=== PATIENT | male | born 1950 | race Caucasian/White ===

== ENCOUNTER 2025-05-13 15:17 | Emergency (ER) | payer MEDICARE, MEDICAID, SELFPAY ==
[2025-05-13 15:27] VITALS: BP 179/90; PULSE 70; RESP 18; TEMP 36.7; O2SAT 95; BMI 24.2
--- OUTSIDE RECORDS SUMMARY | 2025-05-13 15:29 | XMS_ITS | Encounter Summary ---
Author Organization [employer] [facility] Address [address] [place] [address] Care Team Providers Care Timber Deadener Name Role Phone Unavailable Primary Care Provider Unavailabl e Encounter Details Date Type Department Care Team (Late st Contact Info) Description 07/22/2001 Outpatient Historical [facility] Wilda, Elvis Tamayo MD [address] [phone] Inguinal hernia without mention of obstruction or gangrene, unilateral or unspecified, (not specified as recurrent) (Primary Dx) Social History Tobacco Use Types Packs/Day Years Used Date Smoking Tobacco: Never Assessed Sex and Gender Information Value Date Recorded Sex Assigned at Not on file 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
--- OUTSIDE RECORDS SUMMARY | 2025-05-13 15:29 | XMS_ITS | Clinical Summary ---
Author Organization [facility] Address [address] [facility] [address] 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
--- OUTSIDE RECORDS SUMMARY | 2025-05-13 15:29 | XMS_ITS | Encounter Summary ---
Author Organization [employer] [facility] Address [address] [place] [address] Care Team Providers Care Mud Mixer Name Role Phone Unavailable Primary Care Provider Unavailabl e Encounter Details Date Type Department Care Team (Late st Contact Info) Description 09/02/2001 Outpatient Historical [facility] Wilda, Elvis Tamayo MD [address] [phone] SURGERY FOLLOWUP, UNSPEC (Primary Dx) Social History Tobacco Use Types Packs/Day Years Used Date Smoking Tobacco: Never Assessed Sex and Gender Information Value Date Recorded Sex Assigned at Not on file 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
--- OUTSIDE RECORDS SUMMARY | 2025-05-13 15:29 | XMS_ITS | Encounter Summary ---
[facility] Organization [facility] Address [address] [place] [address] Care Team Providers Care Environmental Conservation Officer Name Role Phone Unavailable Primary Care Provider Unavailabl e Encounter Details Date Type Department Care Team (Late st Contact Info) Description 08/12/2001 Outpatient Historical [facility] Wilda, Elvis Tamayo MD [address] [phone] Special screening for malignant neoplasms, colon (Primary Dx) Social History Tobacco Use Types Packs/Day Years Used Date Smoking Tobacco: Never Assessed Sex and Gender Information Value Date Recorded Sex Assigned at Not on file 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
[2025-05-13 16:08] VITALS: BP 168/81; PULSE 64; O2SAT 95
--- NOTE | 2025-05-13 16:21 | CTR_ITS ---
PROCEDURE INFORMATION: Exam: CTA Chest With Contrast Exam date and time: 05/13/2025 5:03 PM Age: 74 years old Clinical indication: Shortness of breath; Additional info: SOB, near syncope TECHNIQUE: Imaging protocol: Computed tomographic angiography of the chest with contrast. Exam focused on the arteries. 3D rendering (Not supervised by radiologist): MIP and/or 3D reconstructed images were created by the technologist. Radiation optimization: All CT scans at this facility use at least one of these dose optimization techniques: automated exposure control; mA and/or kV adjustment per patient size (includes targeted exams where dose is matched to clinical indication); or iterative reconstruction. Contrast material: [id number]; Contrast volume: 80 ml; Contrast route: INTRAVENOUS (IV); COMPARISON: CR (CHEST, ) 05/13/2025 4:32 PM RADIATION DOSE METRICS: Total DLP (mGy-cm): 303.09 FINDINGS: Pulmonary arteries: There is no evidence of filling defects within the pulmonary arterial circulation to suggest pulmonary embolism. Aorta: There is no thoracic aortic aneurysm or dissection. Lungs: There are moderate changes of centrilobular emphysema, mainly in the apical regions. There is some paraseptal emphysema medially on both sides left greater than right with a few subpleural blebs along the left heart border. No acute pulmonary infiltrate is identified. There is calcified granuloma in the right lower lobe. Incidentally noted is an azygos lobe. There is mild diffuse bronchial wall thickening involving the central bronchi which may be related to bronchitis, possibly chronic. Please correlate with the clinical findings. Pleural spaces: There are no pleural effusions present. There is no evidence of pneumothorax. Heart: Unremarkable. No cardiomegaly. No pericardial effusion. Coronary arteries: There is severe atherosclerotic calcification of the coronary arteries. Lymph nodes: Unremarkable. No enlarged lymph nodes. Bones/joints: Unremarkable. No acute fracture. Soft tissues: Unremarkable. CT/CT angio chest PE protcl [id number] IMPRESSION: 1. Bronchitis and emphysema. 2. No evidence of pulmonary embolism. COMMENTS: The presence of pulmonary emphysema on CT is an independent risk factor for lung cancer. In the absence of a history or active diagnosis of lung cancer, it is recommended that this patient with emphysema be evaluated for enrollment in a low dose CT lung cancer screening program.
--- NOTE | 2025-05-13 16:21 | XRR_ITS ---
PROCEDURE INFORMATION: Exam: XR Chest Exam date and time: 05/13/2025 4:32 PM Age: 74 years old Clinical indication: Shortness of breath; Additional info: SOB TECHNIQUE: Imaging protocol: Radiologic exam of the chest. Views: 1 view. COMPARISON: No relevant prior studies available. FINDINGS: Lungs: Lungs are moderately hyperinflated. No consolidation. No focal infiltrate. Pleural spaces: Unremarkable. No pleural effusion. No pneumothorax. Heart/Mediastinum: Unremarkable. No cardiomegaly. Bones/joints: Unremarkable. XR/XR chest 1V portable [id number] IMPRESSION: Pulmonary hyperinflation. No acute infiltrate
--- NOTE | 2025-05-13 16:22 | ECG_ITS ---
[facility] Date: 2025-[facility]13 Pat Name: Nabeel Barrow Department: Room: Gender: Male Direct Marketing Intern: : 1950 Requested By: Orlin Esquivel Order Number: [id number] Duarte MD: Haris Sullivan M.D. Measurements Intervals [place] Rate: 57 P: 74 MI: 182 QRS: -86 QRSD: 102 T: 61 QT: 445 QTc: 435 Interpretive Statements SINUS BRADYCARDIA LOW QRS VOLTAGE IN EXTREMITY LEADS [QRS DEFLECTION < 0.5 mV IN LIMB LEADS] PATTERN CONSISTENT WITH PULMONARY DISEASE LEFT ANTERIOR FASCICULAR BLOCK [QRS AXIS <= -45, QR IN I, RS IN II] Compared to ECG 12/17/2014 17:01:40 Left anterior fascicular block now present Sinus rhythm no longer present Left-axis deviation no longer present Electronically Signed On 05-14-2025 00:17:04 CDT by Haris Sullivan M.D. [email or web address]
[2025-05-13 16:30] LABS: Hematocrit 42.8 % (37-53); Hemoglobin 14.20 g/dL (11.27-16.99); Mean Corpuscular HGB Conc 33.2 g/dL (30-55); Mean Corpuscular Hemoglobin 33.9 pg (27-33); Mean Corpuscular Volume 102.1 fl (82-101); Nucleated Red Blood Cells % 0 %; Platelet Count 175 10^3/cmm (157-399); Red Blood Count 4.19 10^6/uL (3.85-5.65); White Blood Count 8.73 10^3/uL (3.29-11.43)
[2025-05-13 16:41] LABS: Alanine Aminotransferase 8 U/L (0-41); Albumin Level 4.2 g/dL (3.5-5.2); Alkaline Phosphatase 73 U/L (40-130); Anion Gap 17.0 (5-19); Aspartate Amino Transferase 11 U/L (0-40); Blood Urea Nitrogen 5 mg/dL (8-23); Calcium 9.0 mg/dL (8.5-10.5); Carbon Dioxide 23 mmol/L (22-29); Chloride 103 mmol/L (98-107); Creatinine Clr Calc Pharmacy 76.1841; Globulin 2.4 g/dL (1.3-4.6); Glucose 88 mg/dL (65-115); Magnesium 2.2 mg/dL (1.7-2.3); Osmolality Calculated 285 mOsm/kg (285-295); Potassium 4.0 mmol/L (3.5-5.1); Sodium 139 mmol/L (136-145); Total Protein 6.6 g/dL (6.6-8.7)
[2025-05-13 17:00] LABS: Troponin(5th) Baseline 8 ng/L (0-15)
[2025-05-13] MEDS: iohexol 350 mg/mL 500 mL Btl (per mL) IV (17:14)
[2025-05-13 18:09] VITALS: BP 153/75; PULSE 54; O2SAT 97
--- NOTE | 2025-05-13 18:20 | ED_ITS ---
HPI - Dizziness 2 General: Chief Complaint: Dizziness Stated Complaint: dizziness Time Seen by Provider: 05/13/25 15:25 History of Present Illness: HPI Narrative: 74-year-old male presents to the ED with complaints of lightheadedness, shortness of breath, and tight muscles across his shoulders that began yesterday. The patient reports calling an ambulance yesterday for identical symptoms and again today, which prompted this visit. He denies vertigo or spinning sensation but describes general lightheadedness that comes and goes, occurring even when sitting down. The patient reports that smoking worsens his lightheadedness. He occasionally feels like he might pass out, though not consistently. The patient also reports occasional coughing, which he states is normal for him given his long smoking history. He additionally describes tingling sensations in his hands and feet, with the feet being more frequently affected. During his recent ambulance calls, he experienced tingling up and down his upper body and rushes of warmth on his left leg without apparent cause. The patient denies chest pain. He reports having equilibrium problems for the past 6-8 months, which he considers a separate, chronic issue. Related Data Previous Rx's ?Medication ?Instructions ?Recorded albuterol sulfate 90 mcg/actuation 2 inh inhalation Q6 H PRN shortness 05/13/25 aerosol inhaler (Ventolin HFA) of breath or wheezing # 6.7 grams azithromycin 250 mg tablet See Rx Instructions PO .COM PLEX #6 05/13/25 tabs prednisone 20 mg tablet 20 mg PO BID 5 days #10 tabs 05/13/25 Allergies Allergy/AdvReac Type Severity Reaction Status Date / Time No Known Allergies Allergy Unverified 11/27/21 08:20 [facility] ED 2 [facility]: Social History Smoking and tobacco/nicotine status: current every day tobacco/nicotine user Alcohol intake: never Substance/Drug Use: never Course 2 Vital Signs: Vital signs: Vital Signs Temperature 98.1 F 05/13/25 15:27 Pulse Rate 54 L 05/13/25 18:09 Respiratory Rate 18 05/13/25 15:27 Blood Pressure 153/75 05/13/25 18:09 Pulse Oximetry 97 05/13/25 18:09 Oxygen Delivery Me thod Room Air 05/13/25 15:27 MDM - Dizziness Medical Decision Making ROS: Constitutional: Denies fever, chills, or weight changes. HEENT: No headache or visual changes reported. Cardiovascular: Denies chest pain or palpitations. Respiratory: Reports shortness of breath and occasional cough, which is baseline for him. Neurological: Reports lightheadedness, tingling in extremities, and chronic balance issues. Denies vertigo, weakness in extremities. Musculoskeletal: Reports tight muscles across shoulders. All other systems negative or not addressed in the encounter. MEDICATIONS AND ALLERGIES: - Meds: Patient denies taking prescription medications. Reports taking supplements including cinnamon and an unspecified supplement for blood pressure/diabetes management. - Allergies: No known drug allergies reported. PAST HISTORICAL DATA: - PMH: Likely undiagnosed/untreated hypertension based on reported elevated blood pressures. Patient reports rarely seeking medical care. - PSH: Colonoscopy 6 years ago, no other surgical history reported. - Social: 40-year smoking history, approximately 1 pack per day. Very rare alcohol use, denies daily drinking. Denies drug use. VITAL SIGNS: BP: 168/81 (current), 196/104 (reported from yesterday) HR: 57 (from EKG) PHYSICAL EXAM: General: Alert, non-toxic appearing, in no apparent distress HEENT: Head normocephalic and atraumatic. Mucous membranes moist. Neck: Supple Respiratory: Breath sounds auscultated, no specific abnormalities documented Cardiac: Regular rate and rhythm, bradycardic at 57 bpm Abdomen: Soft, non-distended, no rebound or guarding Neuro: Cranial nerves grossly intact. [id number] testing performed with some difficulty with spatial relationships. No focal motor or sensory deficits noted. INITIAL IMPRESSION AND PLAN: Given the history and presentation, the primary working diagnosis is lightheadedness and shortness of breath of unclear etiology. Additional considerations include acute coronary syndrome, pulmonary embolism, COPD exacerbation, and hypertensive urgency. Based on this initial impression I will order blood work including CBC, chemistry panel, and troponin, chest X-ray, CT scan of the chest, and EKG to evaluate for cardiac and pulmonary etiologies of the patient's symptoms. TEST INTERPRETATIONS: - CT Chest: Shows bronchitis and emphysema. No evidence of pulmonary embolism. - Chest X-ray: Pulmonary hyperinflation noted. No acute infiltrate. - CBC: Unremarkable. WBC 8.7. - Chemistry Panel: Normal. BUN 5, Creatinine 0.7. - Troponin: 8 (normal). - EKG: Sinus bradycardia with rate of 57 beats per minute. No ischemic ST elevation or depressions. PROCEDURES: None performed CONSIDERED BUT NOT PERFORMED: Admission for observation CONSIDERED but NOT DONE due to no perceived benefit as patient has normal troponin, no evidence of PE on CT scan, and symptoms consistent with COPD exacerbation that can be managed as an outpatient. FINAL IMPRESSION: Based on all the above, my clinical impression is most compatible with COPD exacerbation with bronchitis and underlying emphysema. The clinical picture is not currently suggestive of acute coronary syndrome or pulmonary embolism. Although other conditions were also considered, they were deemed unlikely based on the clinical information available. CLINICAL DISPOSITION: The patient's current condition is stable in my estimation and the most appropriate and indicated disposition at this time is discharge home with medications and outpatient follow-up. The patient is safe for discharge as his workup has excluded life-threatening conditions such as acute coronary syndrome and pulmonary embolism. His symptoms are consistent with a COPD exacerbation that can be appropriately managed as an outpatient with prescribed medications. His vital signs are stable, and he has no evidence of respiratory distress requiring hospitalization. The patient will be discharged with prescriptions for albuterol, prednisone, and azithromycin, with instructions to follow up with a primary care provider. RISK STRATIFICATION AND CLINICAL DECISION RULES APPLIED: PERC Rule - Patient was evaluated for pulmonary embolism with CT scan despite not meeting high-risk criteria, which was negative, confirming low risk. HEART Score - Low risk based on history, EKG without ischemic changes, age, risk factors, and normal troponin. This supports the decision for discharge without further cardiac workup. CASE SUMMARY: 74-year-old male smoker with 40-year history presented with lightheadedness, shortness of breath, and muscle tightness across shoulders. Patient had called ambulance yesterday for identical symptoms. Workup included CT chest showing bronchitis and emphysema without PE, normal troponin, and EKG showing sinus bradycardia without ischemic changes. Patient was diagnosed with COPD exacerbation and discharged with prescriptions for albuterol, prednisone, and azithromycin. Patient was counseled on smoking cessation and instructed to follow up with PCP. Patient was also advised about his elevated blood pressure (168/81 today, 196/104 yesterday) and the importance of establishing care with a primary physician to address his likely untreated hypertension. Lab Data I reviewed the patient's lab results. 05/13/25 16:01 05/13/25 16:01 Radiology Impressions Chest CTA 05/13/25 16:21 IMPRESSION: 1. Bronchitis and emphysema. 2. No evidence of pulmonary embolism. COMMENTS: The presence of pulmonary emphysema on CT is an independent risk factor for lung cancer. In the absence of a history or active diagnosis of lung cancer, it is recommended that this patient with emphysema be evaluated for enrollment in a low dose CT lung cancer screening program. Chest X-Ray 05/13/25 16:21 IMPRESSION: Pulmonary hyperinflation. No acute infiltrate Laboratory Results WBC 8.73 10^3/uL (3.29-11.43) 05/13/25 16:01 RBC 4.19 10^6/uL (3.85-5.65) 05/13/25 16:01 Hgb 14.20 g/dL (11.27-16.99) 05/13/25 16:01 Hct 42.8 % (37-53) 05/13/25 16:01 MCV 102.1 fl (82-101) H 05/13/25 16:01 MCH 33.9 pg (27-33) H 05/13/25 16:01 MCHC 33.2 g/dL (30-55) 05/13/25 16:01 RDW 14.7 % (12.1-15.1) 05/13/25 16:01 Plt Count 175 10^3/cmm (157-399) 05/13/25 16:01 MPV 10.5 fL (7.4-10.4) H 05/13/25 16:01 Neut % (Auto) 68.5 % 05/13/25 16:01 Lymph % (Auto) 22.6 % 05/13/25 16:01 [place] % (Auto) 7.0 % 05/13/25 16:01 Eos % (Auto) 1.4 % 05/13/25 16:01 Baso % (Auto) 0.2 % 05/13/25 16:01 Neut # (Auto) 5.98 10^3/uL (1.8-7.7) 05/13/25 16:01 Lymph # (Auto) 2.0 10^3/uL (0.8-4.8) 05/13/25 16:01 [place] # (Auto) 0.6 10^3/uL (0.2-0.9) 05/13/25 16:01 Eos # (Auto) 0.1 10^3/uL (0.0-0.8) 05/13/25 16:01 Baso # (Auto) 0.0 10^3/uL (0.0-0.1) 05/13/25 16:01 Nucleated RBC % (auto) 0 % 05/13/25 16:01 Nucleated RBCs # 0.0 /100WBC 05/13/25 16:01 Sodium 139 mmol/L (136-145) 05/13/25 16:01 Potassium 4.0 mmol/L (3.5-5.1) 05/13/25 16:01 Chloride 103 mmol/L (98-107) 05/13/25 16:01 Carbon Dioxide 23 mmol/L (22-29) 05/13/25 16:01 Anion Gap 17.0 (5-19) 05/13/25 16:01 BUN 5 mg/dL (8-23) L 05/13/25 16:01 Creatinine 0.7 mg/dL (0.7-1.2) 05/13/25 16:01 GFR Calculation Not Reportable 05/13/25 16:01 Glucose 88 mg/dL (65-115) 05/13/25 16:01 Calculated Osmolality 285 mOsm/kg (285-295) 05/13/25 16:01 Calcium 9.0 mg/dL (8.5-10.5) 05/13/25 16:01 Magnesium 2.2 mg/dL (1.7-2.3) 05/13/25 16:01 Total Bilirubin 0.6 mg/dL (0.15-1.2) 05/13/25 16:01 AST 11 U/L (0-40) 05/13/25 16:01 ALT 8 U/L (0-41) 05/13/25 16:01 Alkaline Phosphatase 73 U/L (40-130) 05/13/25 16:01 Troponin T Baseline 8 ng/L (0-15) 05/13/25 16:01 Total Protein 6.6 g/dL (6.6-8.7) 05/13/25 16:01 Albumin 4.2 g/dL (3.5-5.2) 05/13/25 16:01 Globulin 2.4 g/dL (1.3-4.6) 05/13/25 16:01 All radiology interpretation(s) finalized by discharge Discharge Plan Discharge Patient Disposition: Home Clinical Impression: Dyspnea, Light-headedness, Bronchitis Condition: Stable Prescriptions: New prednisone 20 mg tablet 20 mg PO BID 5 Days Qty: 10 0RF azithromycin 250 mg tablet See Rx Instructions .ROUTE .COMPLEX Qty: 6 0RF Rx Instructions: For 250 mg dose pack: take 500 mg today (day 1), then 250 mg for 4 days (days 2-5) albuterol sulfate [Ventolin HFA] 90 mcg/actuation HFA aerosol inhaler 2 inh inhalation Q6H PRN (Reason: shortness of breath or wheezing) Qty: 6.7 0RF Discharge Orders: Discharge ED (Routine); Ordered 05/13/25 Ordered By: Orlin Esquivel Referrals: Richard Wallace MD [Primary Care Provider, [facility]] Patient Instructions: Acute Bronchitis (ED), Opioid Safety, Pain Management, Patient Portal & Jaspreet Instructions Activity Restrictions/Additional Instructions: Diagnosis: COPD Exacerbation with Bronchitis Medications: 1. Albuterol inhaler: Use 2 puffs every 4-6 hours as needed for shortness of breath 2. Prednisone: Take as directed for 5 days to reduce airway inflammation 3. Azithromycin: Take as directed to treat bronchitis Home Care Instructions: 1. Continue oral hydration 2. Rest as needed 3. Avoid smoking - this significantly worsens your condition and is likely contributing to your symptoms 4. Monitor your blood pressure if possible, as it was elevated today Follow-up: 1. Schedule an appointment with a primary care provider within 1 week 2. Bring all your medications to your appointment 3. Discuss establishing regular care for your blood pressure and respiratory conditions Return to the Emergency Department immediately if you experience: 1. Severe shortness of breath or difficulty breathing 2. Chest pain 3. Inability to keep fluids down 4. Feeling like you might pass out 5. Worsening symptoms despite using prescribed medications Print Language: [place] Coding Level of Care Code ED Insulation Engineman for Joelle Vigil
[2025-05-13 18:32] LABS: Troponin 5 2HR 8.67 ng/L (0-15); Troponin 5 2HR Delta 0.67 ABS# (0-10)
[2025-05-13 18:42] VITALS: BP 153/75; PULSE 61; O2SAT 98
== END 2025-05-13 18:43 | disposition home or self-care (01) ==
PROVIDERS: Emergency Provider Student in an Organized Health Care Education/Training Program; PCP Family Medicine
DX: R06.00 Dyspnea, unspecified (principal); R42 Dizziness and giddiness; J40 Bronchitis, not specified as acute or chronic; Z72.0 Tobacco use
CPT/HCPCS: 36415; 71045; 71275; 80053; 83735; 84484; 85025; 93005; 99285